=== PATIENT | male | born 1940 | race Two or more races ===

== ENCOUNTER 2016-08-18 21:23 | Inpatient (IN) | payer OTHER ==
[~2016-08-18] VITALS: Ht 162.6 cm; Wt 74.0 kg
[2016-08-18 22:21] LABS: Basophils # (auto) 0 uL; DEFINITIVE VIEW TRANSMISSION; Eosinophils # (auto) 0 uL; Hematocrit 25.4 % (41.0-53.0); Hemoglobin 7.6 g/dL (13.5-17.5); Lymphocytes # (auto) 0.8 uL; Lymphocytes % (auto) 5.9 % (10.0-50.0); Mean Corpuscular Hemoglobin 20.8 pg (28.0-32.0); Mean Corpuscular Hgb Conc. 29.8 g/dL (32.0-36.0); Mean Corpuscular Volume 69.7 fL (80.0-100.0); Mean Platelet Volume 8.3 fL (7.4-10.4); Monocytes # (auto) 0.5 uL; Monocytes % (auto) 3.7 % (0.0-12.0); Neutrophils # (auto) 13.1 uL; Neutrophils % (auto) 90.4 % (37.0-80.0); Platelet Count (auto) 351 10^3/uL (140-450); White Blood Cell 14.4 10^3/uL (4.4-10.8)
[2016-08-18 22:23] LABS: Red Cell Distribution Width 20.1 % (11.6-16.0)
[2016-08-18 22:36] LABS: Albumin 1.2 g/dL (3.4-5.0); Calcium 8.1 mg/dL (8.5-10.1); Potassium 4.4 mmol/L (3.5-5.1)
[2016-08-18 22:39] LABS: Bilirubin, Total 0.5 mg/dL (0.2-1.0); Total Protein 5.8 g/dL (6.4-8.2)
[2016-08-18 22:45] LABS: B-Type Natriuretic Peptide 66.11 pg/mL (0-100)
[2016-08-18 22:47] LABS: Platelet Estimate Adequate
[2016-08-18 22:48] LABS: Hypochromia Marked
[2016-08-18 22:49] LABS: Anisocytosis Slight
[2016-08-18 22:51] LABS: Temperature: 22.9 C (20.0-25.0)
[2016-08-18 22:58] LABS: Partial Thromboplastin Time 25.9 sec (22.64-33.71)
[2016-08-18 22:59] LABS: INR 1.23 (0.9-1.15); Prothrombin Time 12.7 sec (9.37-12.3)
[2016-08-19] VITALS (10 sets, daily range): BP systolic 94–130; BP diastolic 65–89
[2016-08-19] MEDS ORDERED: ONDANSETRON HCL 4 MG/2 ML VIAL ONE (03:01)
[2016-08-19] MEDS ORDERED: ONDANSETRON HCL 4 MG/2 ML VIAL IV ONE (03:15)
[2016-08-19] MEDS ORDERED: PANTOPRAZOLE SODIUM 40 MG/10 ML VIAL IV ONE (08:15)
[2016-08-19] MEDS ORDERED: MORPHINE SULF INJ 2 MG/ML SYRINGE 1ML IV PRN ×2 (08:15)
[2016-08-19] MEDS ORDERED: ACETAMINOPHEN 500 MG TAB PO PRN (08:15)
[2016-08-19] MEDS ORDERED: LORazepam 0.5 MG TAB PO PRN (08:15)
[2016-08-19] MEDS ORDERED: HYDROcodone-ACET 5/325MG TAB PO PRN (08:15)
[2016-08-19] MEDS ORDERED: TEMAZEPAM 15 MG CAP PO PRN (08:15)
[2016-08-19] MEDS ORDERED: PROMETHAZINE HCL 25 MG/ML 1ML IV PRN (08:15)
[2016-08-19] MEDS ORDERED: NITROGLYCERIN 0.4 MG SL TAB SL PRN (08:15)
[2016-08-19] MEDS ORDERED: cefTRIAXone 1GM/50ML D5W 50 ML IV ONE (08:15)
[2016-08-19] MEDS ORDERED: PHYTONADIONE(VIT K) 5 MG TAB PO ONE (09:15)
[2016-08-19 09:18] LABS: Amylase 98 U/L (25-115)
[2016-08-19] MEDS: cefTRIAXone 1GM/50ML D5W 50 ML IV SCH (09:19)
[2016-08-19] MEDS ORDERED: PANTOPRAZOLE 40 MG TAB PO SCH (10:00)
[2016-08-19] MEDS ORDERED: FERR325T PO (10:57)
[2016-08-19] MEDS ORDERED: GABA250S2 PO (10:57)
[2016-08-19] MEDS ORDERED: POTA1TAB64 PO (10:58)
[2016-08-19] MEDS ORDERED: DOCU100C8 PO (10:58)
[2016-08-19] MEDS ORDERED: FURO40TA4 PO (10:58)
[2016-08-19] MEDS: metroNIDAZOLE 500MG/100ML 100 ML IV SCH ×2 (12:54→18:12)
[2016-08-19] MEDS ORDERED: GOLYTELY 4L KIT PO ONE (13:30)
[2016-08-19 18:47] LABS: Urine Bilirubin Negative (Negative); Urine Color Orange (Yellow); Urine Glucose Normal (Normal); Urine Ketone Negative (Negative); Urine Mucus FEW (None Seen); Urine Nitrite Negative (Negative); Urine RBC 247 /hpf (0 - 3); Urine Squamous Epithelial Cell FEW /hpf (<5)
[2016-08-19 18:48] LABS: Urine Blood 3+ /uL (Negative)
[2016-08-19 21:26] LABS: Hematocrit 31.2 % (41.0-53.0); Hemoglobin 9.8 g/dL (13.5-17.5)
[2016-08-19] MEDS: PANTOPRAZOLE 40 MG TAB PO SCH (22:00)
[2016-08-20] MEDS: metroNIDAZOLE 500MG/100ML 100 ML IV SCH ×5 (02:04→23:25)
[2016-08-20 04:00] VITALS: BP 111/76
[2016-08-20 05:45] LABS: Basophils # (auto) 0 uL; DEFINITIVE VIEW TRANSMISSION; Eosinophils # (auto) 0 uL; Hematocrit 30.1 % (41.0-53.0); Hemoglobin 9.3 g/dL (13.5-17.5); Lymphocytes # (auto) 0.4 uL; Lymphocytes % (auto) 4.1 % (10.0-50.0); Mean Corpuscular Hemoglobin 22.9 pg (28.0-32.0); Mean Corpuscular Hgb Conc. 30.8 g/dL (32.0-36.0); Mean Corpuscular Volume 74.1 fL (80.0-100.0); Mean Platelet Volume 8.1 fL (7.4-10.4); Monocytes # (auto) 0.3 uL; Monocytes % (auto) 2.9 % (0.0-12.0); Neutrophils # (auto) 8.8 uL; Platelet Count (auto) 206 10^3/uL (140-450); White Blood Cell 9.4 10^3/uL (4.4-10.8)
[2016-08-20 05:59] LABS: Partial Thromboplastin Time 26.5 sec (22.64-33.71)
[2016-08-20 06:11] LABS: Red Cell Distribution Width 20.7 % (11.6-16.0)
[2016-08-20 06:22] LABS: Albumin 1.1 g/dL (3.4-5.0); BUN/Creatinine Ratio 39.2; Bilirubin, Total 0.9 mg/dL (0.2-1.0); Calcium 7.3 mg/dL (8.5-10.1); Potassium 3.7 mmol/L (3.5-5.1); Total Protein 4.9 g/dL (6.4-8.2)
[2016-08-20 06:28] LABS: INR 1.31 (0.9-1.15); Prothrombin Time 13.5 sec (9.37-12.3)
[2016-08-20 06:52] LABS: Anisocytosis Slight; Platelet Estimate Adequate
[2016-08-20 06:53] LABS: Hypochromia Moderate; Microcytosis Slight
[2016-08-20 08:00] VITALS: BP 93/65
[2016-08-20] MEDS ORDERED: diphenhdrAMINE HCL 50 MG/1 ML VL ONE (08:10)
[2016-08-20] MEDS ORDERED: SODIUM CHLORIDE LOCK 10 ML ONE (08:10)
[2016-08-20] MEDS ORDERED: fentaNYL CITRATE 100 MCG/2 ML VL ONE (08:10)
[2016-08-20] MEDS ORDERED: LIDOCAINE VISCOUS 2% 15ML UD ONE (08:10)
[2016-08-20] MEDS ORDERED: MIDAZOLAM HCL 5 MG/ML-1ML VIAL ONE (08:10)
[2016-08-20] MEDS: cefTRIAXone 1GM/50ML D5W 50 ML IV SCH (09:27)
[2016-08-20] MEDS: PANTOPRAZOLE 40 MG TAB PO SCH ×2 (10:00→21:39)
[2016-08-20 11:37] VITALS: BP 101/68
[2016-08-20] MEDS: SODIUM CHLORIDE 0.9% 1,000 ML IV SCH (15:23)
[2016-08-20 15:49] VITALS: BP 107/73
[2016-08-20] MEDS: FERROUS SULFATE 325 MG TAB PO SCH (18:29)
[2016-08-20] MEDS: ALBUMIN 25% 100 ML IV SCH (21:43)
[2016-08-20 22:49] VITALS: BP 110/74
[2016-08-21 04:55] VITALS: BP 110/73
[2016-08-21] MEDS: metroNIDAZOLE 500MG/100ML 100 ML IV SCH ×4 (05:23→23:11)
[2016-08-21] MEDS: ALBUMIN 25% 100 ML IV SCH ×3 (05:23→21:26)
[2016-08-21 07:21] LABS: Albumin 1.4 g/dL (3.4-5.0); Calcium 7.1 mg/dL (8.5-10.1); Magnesium 2.1 mg/dL (1.6-2.6); Potassium 3.6 mmol/L (3.5-5.1); Total Protein 4.7 g/dL (6.4-8.2)
[2016-08-21] MEDS: FERROUS SULFATE 325 MG TAB PO SCH ×2 (07:57→08:00)
[2016-08-21] MEDS: SODIUM CHLORIDE 0.9% 1,000 ML IV SCH ×2 (07:58→22:42)
[2016-08-21] MEDS: PANTOPRAZOLE 40 MG TAB PO SCH ×2 (08:50→21:18)
[2016-08-21 09:00] VITALS: BP 109/71
[2016-08-21] MEDS ORDERED: PANT40T PO (12:10)
[2016-08-21] MEDS ORDERED: METR500T PO (12:10)
[2016-08-21 13:00] VITALS: BP 103/73
[2016-08-21 17:00] VITALS: BP 110/70
[2016-08-21 21:47] VITALS: BP 110/75
[2016-08-22 04:34] VITALS: BP 108/73
[2016-08-22] MEDS: metroNIDAZOLE 500MG/100ML 100 ML IV SCH ×3 (05:31→18:00)
[2016-08-22] MEDS: ALBUMIN 25% 100 ML IV SCH ×2 (05:32→14:36)
[2016-08-22] MEDS: FERROUS SULFATE 325 MG TAB PO SCH ×2 (08:30→18:00)
[2016-08-22 09:00] VITALS: BP 116/69
[2016-08-22] MEDS: PANTOPRAZOLE 40 MG TAB PO SCH (09:47)
[2016-08-22 13:00] VITALS: BP 120/87
[2016-08-22 15:22] VITALS: BP 120/87
[2016-08-22 16:50] VITALS: BP 124/65
[2016-08-22] MEDS: SODIUM CHLORIDE 0.9% 1,000 ML IV SCH (17:23)
== END 2016-08-22 21:07 | disposition hospice, home (50) | DRG 435 ==
LOC: EDBD 21:23 → ER 21:27 → TELE 21:28 → DOU IN ICU 08-19 09:00 → TELE-EAST 08-20 21:17
PROVIDERS: ADMIT Internal Medicine; ATTEND Internal Medicine
PROC: 30233N1 Transfusion of Nonautologous Red Blood Cells into Peripheral Vein, Percutaneous Approach (ICD-10-PCS; 2016-08-19)
PROC: 0DJ08ZZ Inspection of Upper Intestinal Tract, Via Natural or Artificial Opening Endoscopic (ICD-10-PCS; principal; 2016-08-20 13:10)
PROC: 0DBH8ZX Excision of Cecum, Via Natural or Artificial Opening Endoscopic, Diagnostic (ICD-10-PCS; 2016-08-20 13:10)
DX: C78.7 Secondary malignant neoplasm of liver and intrahepatic bile duct (principal); N17.0 Acute kidney failure with tubular necrosis; C18.9 Malignant neoplasm of colon, unspecified; K92.2 Gastrointestinal hemorrhage, unspecified; E46 Unspecified protein-calorie malnutrition; A04.7 Enterocolitis due to Clostridium difficile; J98.11 Atelectasis; J90 Pleural effusion, not elsewhere classified; R18.8 Other ascites; D50.0 Iron deficiency anemia secondary to blood loss (chronic); E86.0 Dehydration; I51.7 Cardiomegaly; K27.9 Peptic ulcer, site unspecified, unspecified as acute or chronic, without hemorrhage or perforation; K40.20 Bilateral inguinal hernia, without obstruction or gangrene, not specified as recurrent; F17.210 Nicotine dependence, cigarettes, uncomplicated; K57.30 Diverticulosis of large intestine without perforation or abscess without bleeding; K44.9 Diaphragmatic hernia without obstruction or gangrene; K64.8 Other hemorrhoids; M43.10 Spondylolisthesis, site unspecified; N20.0 Calculus of kidney; N21.0 Calculus in bladder; Z51.5 Encounter for palliative care; K25.9 Gastric ulcer, unspecified as acute or chronic, without hemorrhage or perforation; Z68.28 Body mass index [BMI] 28.0-28.9, adult
CPT/HCPCS: 36415; 36430; 71010; 74176; 80053; 81001; 82105; 82150; 82270; 82378; 83690; 83735; 83880; 84484; 85014; 85018; 85025; 85045; 85610; 85730; 86850; 86900; 86901; 86920; 87081; 87086; 87493; 93005; 96365; 96375; 97001; C9113; J0696; J2250; J2405; J3490